=== PATIENT | male | born 1965 | race Caucasian/White ===

== ENCOUNTER 2017-11-07 07:07 | Observation (INO) | payer OTHER ==
[2017-11-07 08:00] LABS: ADD MAN DIFF? NO
[2017-11-07 08:02] LABS: WHITE BLOOD COUNT 6.7 10^3/ul (4.8-10.8)
[2017-11-07 08:03] LABS: BASOPHILS % 0.4 % (0.0-2.0); EOSINOPHILS # 0.2 10^3/ul (0.0-0.5); EOSINOPHILS % 2.2 % (0.0-7.0); HEMATOCRIT 39.3 % (42.0-52.0); LYMPHOCYTES # 2.1 10^3/ul (0.8-2.9); LYMPHOCYTES % 31.2 % (15.0-51.0); MEAN CORPUSCULAR HEMOGLOBIN 29.2 pg (29.0-33.0); MEAN CORPUSCULAR HGB CONC 35.6 g/dl (32.0-37.0); MEAN CORPUSCULAR VOLUME 81.9 fl (82.0-101.0); MEAN PLATELET VOLUME 9.8 fl (7.4-10.4); MONOCYTE # 0.5 10^3/ul (0.3-0.9); MONOCYTES % 7.1 % (0.0-11.0); NEUTROPHILS % 58.8 % (39.0-77.0); PLATELET COUNT 172 10^3/UL (140-415); RED CELL DISTRIBUTION WIDTH 12.5 % (11.5-14.5)
[2017-11-07] MEDS: FAMOTIDINE 20 MG TAB PO (08:13)
[2017-11-07] MEDS: DIAZEPAM 5 MG TAB PO (08:13)
[2017-11-07] MEDS: DIPHENHYDRAMINE 50 MG CAP PO (08:13)
[2017-11-07 08:22] LABS: ANION GAP 14 (8-16); BLOOD UREA NITROGEN 20 mg/dl (7-20); CALCIUM 9.3 mg/dl (8.4-10.2); CARBON DIOXIDE 25 mmol/L (21-31); CHLORIDE 107 mmol/L (97-110); CREATININE 0.73 mg/dl (0.61-1.24); GLUCOSE 117 mg/dl (70-220); INR 0.93; PARTIAL THROMBOPLASTIN TIME 31.7 Sec (23.0-35.0); POTASSIUM 3.8 mmol/L (3.5-5.1); PROTIME 12.5 Sec (11.9-14.9); SODIUM 142 mmol/L (135-144)
[2017-11-07] MEDS ORDERED: HEPARIN 1000 UNITS/ML 10 ML INJ (08:29)
[2017-11-07] MEDS ORDERED: LIDOCAINE 1% (MDV) 20 ML INJ (08:29)
[2017-11-07] MEDS ORDERED: IODIXANOL LOCM 100 ML BTL ×3 (08:29→08:40)
[2017-11-07] MEDS ORDERED: VERAPAMIL 5 MG INJ (08:30)
[2017-11-07] MEDS ORDERED: NITROGLYCERIN (IC) 100 MCG/ML INJ (08:30)
[2017-11-07] MEDS ORDERED: MIDAZOLAM 1 MG/ML 2 ML INJ (08:40)
[2017-11-07 08:41] LABS: CHOLESTEROL 199 mg/dl (100-200)
[2017-11-07 08:41] LABS: CHOL/HDL RATIO 4.5 RATIO; HDL CHOLESTEROL 44 mg/dl (28-71); LDL CHOLESTEROL,CALCULATED 131 mg/dl; TRIGLYCERIDES 122 mg/dl (0-149)
[2017-11-07] MEDS ORDERED: FENTAnyl 50 MCG/ML VIAL ×2 (08:41)
[2017-11-07] MEDS ORDERED: SOD CHLORIDE 0.45% 1,000 ML IV (10:00)
[2017-11-07] MEDS ORDERED: IOHEXOL 350MG/ML 50 ML BTL (10:02)
[2017-11-07] MEDS ORDERED: TICAGRELOR 90 MG TABLET (10:25)
[2017-11-07] MEDS ORDERED: ASPIRIN 325 MG TAB (10:25)
[2017-11-07] MEDS ORDERED: OXYCODONE/ACETAMINOPHEN (5/325) TAB PO (10:30)
[2017-11-07] MEDS ORDERED: ZOLPIDEM 5 MG TAB PO (10:30)
[2017-11-07] MEDS ORDERED: morphine 2 MG INJ IV (10:30)
[2017-11-07] MEDS ORDERED: ONDANSETRON 4 MG INJ IV (10:30)
[2017-11-07] MEDS ORDERED: AL HYDROX/MG HYDROX/SIMETH 30 ML CUP PO (10:30)
[2017-11-07] MEDS: SOD CHLORIDE 0.9% 1,000 ML IV (11:20)
[2017-11-07] MEDS ORDERED: GLUCAGON 1 MG INJ IM (16:00)
[2017-11-07] MEDS ORDERED: DEXTROSE 50% 50 ML SYRINGE IV ×2 (16:00)
[2017-11-07] MEDS ORDERED: GLUCOSE GEL 15 GRAM TUBE PO ×2 (16:00)
[2017-11-07] MEDS ORDERED: GLUCOSE GEL 15 GRAM TUBE BUCCAL (16:00)
[2017-11-07] MEDS: INSULIN ASPART [NOVOLOG] 3 ML PEN SC ×3 (17:52→21:00)
[2017-11-07] MEDS ORDERED: INSULIN GLARGINE [LANTus] (100 UNITS/ML) SYG SC (21:00)
[2017-11-07] MEDS: TICAGRELOR 90 MG TABLET PO (21:01)
[2017-11-07] MEDS: INSULIN GLARGINE [LANTus] (100 UNITS/ML) SYG SC (21:04)
[2017-11-08] MEDS: ACETAMINOPHEN 325 MG TAB PO (04:40)
[2017-11-08 06:18] LABS: ADD MAN DIFF? NO
[2017-11-08 06:39] LABS: BASOPHILS % 0.4 % (0.0-2.0); EOSINOPHILS # 0.2 10^3/ul (0.0-0.5); EOSINOPHILS % 2.3 % (0.0-7.0); HEMATOCRIT 42.7 % (42.0-52.0); HEMOGLOBIN 15.1 g/dl (14.0-18.0); LYMPHOCYTES % 29.3 % (15.0-51.0); MEAN CORPUSCULAR HEMOGLOBIN 29.1 pg (29.0-33.0); MEAN CORPUSCULAR HGB CONC 35.4 g/dl (32.0-37.0); MEAN CORPUSCULAR VOLUME 82.3 fl (82.0-101.0); MEAN PLATELET VOLUME 10.1 fl (7.4-10.4); MONOCYTE # 0.5 10^3/ul (0.3-0.9); MONOCYTES % 7.2 % (0.0-11.0); NEUTROPHIL # 4.2 10^3/ul (1.6-7.5); NEUTROPHILS % 60.2 % (39.0-77.0); PLATELET COUNT 171 10^3/UL (140-415); RED BLOOD COUNT 5.19 10^6/ul (4.70-6.10); RED CELL DISTRIBUTION WIDTH 12.5 % (11.5-14.5)
[2017-11-08 06:39] LABS: WHITE BLOOD COUNT 6.9 10^3/ul (4.8-10.8)
[2017-11-08 06:55] LABS: ANION GAP 12 (8-16); BLOOD UREA NITROGEN 15 mg/dl (7-20); CALCIUM 9.3 mg/dl (8.4-10.2); CARBON DIOXIDE 26 mmol/L (21-31); CHLORIDE 107 mmol/L (97-110); CREATINE KINASE 193 IU/L (23-200); CREATININE 0.78 mg/dl (0.61-1.24); GLUCOSE 112 mg/dl (70-220); POTASSIUM 4.1 mmol/L (3.5-5.1); SODIUM 141 mmol/L (135-144)
[2017-11-08 07:05] LABS: CK INDEX 2.4; CK-MB 4.58 ng/ml (0.0-2.4); TROPONIN-I 0.062 ng/ml (0.000-0.120)
[2017-11-08] MEDS: INSULIN ASPART [NOVOLOG] 3 ML PEN SC ×6 (07:55→17:59)
[2017-11-08] MEDS: ASPIRIN (EC) 81 MG TAB PO (08:20)
[2017-11-08] MEDS: ISOSORBIDE MONONITRATE(SR)30 MG TAB PO (08:21)
[2017-11-08] MEDS: TICAGRELOR 90 MG TABLET PO (08:24)
[2017-11-08] MEDS ORDERED: NON-FORMULARY/PATIENT OWN MED (Aspirin (Low Dose Aspirin) 81 MG) PO (09:00)
[2017-11-08] MEDS: CLOPIDOGREL 75 MG TAB PO (18:52)
[2017-11-08] MEDS ORDERED: ATORVASTATIN 40 MG TAB PO ×2 (21:00)
[2017-11-09] MEDS ORDERED: CLOPIDOGREL 75 MG TAB PO (09:00)
== END 2017-11-08 19:22 | disposition home or self-care (01) ==
LOC: CCL 07:07 → SDS 07:07 → TEL 11-08 00:18 → CCL 11-08 07:14 → TEL 11-08 07:15
DX: I25.10 Atherosclerotic heart disease of native coronary artery without angina pectoris (principal); I10 Essential (primary) hypertension; E11.9 Type 2 diabetes mellitus without complications; Z86.73 Personal history of transient ischemic attack (TIA), and cerebral infarction without residual deficits; R94.39 Abnormal result of other cardiovascular function study; Z79.02 Long term (current) use of antithrombotics/antiplatelets; Z79.82 Long term (current) use of aspirin
CPT/HCPCS: 71045; 80048; 80061; 82550; 82553; 82962; 84484; 85025; 85610; 85730; 93005; 93458; G0378